=== PATIENT | male | born 1980 | race Caucasian/White ===

== ENCOUNTER 2018-01-19 10:29 | Outpatient (CLI) | payer BC, SELFPAY ==
[2018-01-19 13:19] LABS: Cholesterol 202 mg/dL (50-200); Glucose 101 mg/dL (70-100); HDL Cholesterol 35 mg/dL (40-60); LDL CHOLESTEROL 148 mg/dL (<100); Triglyceride 143 mg/dL (30-150)
== END 2018-01-19 10:49 ==
PROVIDERS: PCP Family Medicine; Visit Provider Family Medicine
DX: Z00.00 Encounter for general adult medical examination without abnormal findings (principal)
CPT/HCPCS: 36415; 80061; 82947; 83721

== ENCOUNTER 2018-02-28 10:25 | Outpatient (CLI) | payer BC, SELFPAY ==
--- NOTE | 2018-02-28 10:23 | DI.RAD_ITS ---
SYMPTOM/DIAGNOSIS: LT MEDIAL ELBOW PAIN, CUBITAL TUNNEL LEFT ELBOW: Three views. No bone or joint abnormality is identified. The soft tissues are unremarkable. IMPRESSION: Negative examination.
== END 2018-02-28 10:45 ==
PROVIDERS: PCP Family Medicine; Visit Provider Student in an Organized Health Care Education/Training Program
DX: M25.522 Pain in left elbow (principal); G56.22 Lesion of ulnar nerve, left upper limb
CPT/HCPCS: 73080

== ENCOUNTER 2018-04-06 12:28 | Emergency (ER) | payer BC, SELFPAY ==
[2018-04-06 12:34] VITALS: BP 132/88; PULSE 80; RESP 16; TEMP 36.8; O2SAT 95
--- NOTE | 2018-04-06 13:02 | DI.US_ITS ---
SYMPTOMS/DIAGNOSIS: EPIGASTRIC PAIN, WORSE AFTER FATTY FOOD, ? GALLBLADDER ABDOMINAL ULTRASOUND: Routine examination was performed. The study is limited due to overlying bowel. The proximal aorta is obscured by overlying bowel. The mid and distal aorta are of normal caliber. Inferior vena cava is unremarkable. The liver is normal in size. No solid hepatic mass is seen. Note is made of a 1.9 x 1.4 x 1.6 cm anechoic well-circumscribed avascular lesion in the right lobe, most consistent with a cyst. The gallbladder is negative. No stones, sludge or gallbladder wall thickening is seen. There is a negative sonographic Hartman's sign. The common duct is within normal limits at 0.5 cm. The tail of the pancreas was not well seen due to overlying bowel. The limited visualized portions of the pancreas appear grossly unremarkable. The spleen is unremarkable. The kidneys are unremarkable except for a tiny echogenic focus in the mid pole of the right kidney, which may represent a nonobstructing stone. IMPRESSION: 1. No evidence of an acute abdomen. 2. No evidence of cholelithiasis or biliary ductal dilatation.
--- NOTE | 2018-04-06 13:19 | ED.GENADUL_ITS ---
Discharge Plan Disposition Patient Disposition: HOME Condition: Fair Discharge Details Chief Complaint: Abd Prob Clinical Impression: Abdominal pain, epigastric Reason For Visit: stomach pain / vomiting Primary Care Provider: Lc Wheatley ED Provider: Amber Garcia Home Meds and New Rx's Prescriptions: No Action No Known Home Meds RF: 0 Discharge Instructions Instructions: Epigastric Pain (ED) Additional Instructions: Encourage hydration. If symptoms return, you may try simethicone to help with gas discomfort. If you develop inability to stay hydrated, fever/chills increased pain, change in bowel or bladder habits or other new/worsening symptoms please seek care urgently once again. Please follow-up with primary care in 1 week for reevaluation. Stand Alone Forms: Work Release Referrals: Lc Wheatley. [Primary Care Provider] - Discharge Data Discharge Date/Time-TO BE ENTERED AT DEPARTURE: 04/06/18 14:49 Medical Decision Making Patient is a 37-year-old male, company by his , with chief complaint of sudden onset of epigastric discomfort. Reports that he has had 3 total episodes like this historically. Reports he had one last summer after eating [employer], subsequent 1 4 days ago again after eating [employer] and then one that began today. He reports that pain last 3-4 hours, is aching can be fairly severe. He reports that the episode that occurred today was maximal discomfort out of these 3 episodes. States that when he does experience his pain, the pain becomes so severe that it does induce emesis. Reports he vomited x2 today. Denies any nausea. States that last night he had tuna casserole and a bagel with cream cheese this morning. Symptoms began a few hours after eating was able. States the pain can radiate through to the back. States that he feels like he has enlargement of bloating when this comes on. Reports the pain at this time is largely resolved. Has not had anything as discomfort. Denies any chest pain, shortness of breath. Is never had this discomfort come on when he is exerting himself. Patient is a physically active gentleman and has never experienced chest pain historically peer Exam is benign, no CVA tenderness, no pain with palpation at this time. He reports discomfort is largely resolved Plan to obtain laboratory evaluation, give GI cocktail and US of abdomen. His pain has been exacerbated by fatty foods historically making me question GB disease, will obtain US. Discussed plan with patient who is in agreement. US reviewed by tech and radiologist significant for cyst in liver but not acute findings, no GB disease noted. Evaluation significant for AST elevation to 56. However, this does not seem to be diagnostic or pointing towards any specific etiology at this time. I discussed the findings with the patient and his . At this point, I do not find any acute findings to suggest surgical pathology. His pain is largely resolved. He did not have any change in symptoms associated with GI cocktail. Discussed treatment options with the patient. Advise close follow-up with his primary care. We discussed that if this discomfort continues he may need an upper endoscopy. At this point, the patient seems to be epigastric and is largely resolved, I do not feel that CT is appropriate imaging modality. We discussed new/worsening symptoms and when to seek care urgently once again. All questions and concerns were addressed and he is in agreement this plan HPI General Mode of arrival: ambulatory . Date/Time Provider Initiated Documentation: 04/06/18 12:49 . Limitations to Documentation: no limitations . Information obtained by: patient and family . History of Present Illness 37 year old M presents to the emergency department with the chief complaint of epigastric pain, described as moderate, with intensity rated at 5. Quality is described as aching, and is localized to the abdomen. Patient reports radiation to back. Patient started experiencing this hour(s) (2) and it has been now resolved. No relieving factors improve symptom(s), Eating worsens symptoms . Patient notes no other symptoms. and nausea/vomiting; denies chest pain, cough, diaphoresis, fever/chills, headaches, loss of appetite, malaise, rash and shortness of breath. Patient did receive the following treatments prior to arrival, none Related Data Home Medications Medication Instructions Recorded Confirmed Unknown [No Known Home Meds] 02/28/18 Allergies Allergy/AdvReac Type Severity Reaction Status Date / Time eviromental allergies Allergy Intermediate Uncoded 04/06/18 12:38 General Stated Complaint: Abd Prob ROXIE: 3 Review of Systems Constitutional Reports as per HPI, Denies chills, Denies fatigue, Denies fever(s) and Denies headache(s) ENT Denies headache(s) Cardiovascular Reports as per HPI, Denies chest pain and Denies dyspnea Respiratory Denies dyspnea Gastrointestinal Reports as per HPI, Reports abdominal pain, Denies belching, Denies change in stool character, Denies nausea and Reports vomiting (x2) Genitourinary Denies system reviewed and no additional complaints, except as docu (patient denies any change in urinary habits) Musculoskeletal Reports as per HPI and Reports back pain Integumentary/Breasts Reports as per HPI and Denies rash Neurologic Denies headache(s) Endocrine Denies fatigue PFSH Family History Mother No problems noted. Father Personal history of malignant neoplasm Sister No problems noted. Brother No problems noted. Grandfather Diabetes Grandfather Personal history of malignant neoplasm Grandmother Diabetes Grandmother Diabetes Personal history of malignant neoplasm Son No problems noted. Son No problems noted. Vasectomy (~2005) Family History Mother No problems noted. Father Personal history of malignant neoplasm Sister No problems noted. Brother No problems noted. Grandfather Diabetes Grandfather Personal history of malignant neoplasm Grandmother Diabetes Grandmother Diabetes Personal history of malignant neoplasm Son No problems noted. Son No problems noted. Social History household members: other details: 4 current occupation: SELF EMPLOYED Smoking/Tobacco Use Status: Never alcohol intake: current alcohol intake frequency: a few times a month Surgical History Vasectomy (~2005) Social History household members: other details: 4 current occupation: SELF EMPLOYED Smoking/Tobacco Use Status: Never alcohol intake: current alcohol intake frequency: a few times a month Exam Const General: cooperative, healthy appearing, comfortable, no acute distress and well developed Nutritional Appearance: well nourished and overweight Orientation: alert and awake HENMT Head: normal to inspection Mouth: moist mucous membranes Resp Effort & Inspection: normal respiratory effort, able to speak in complete sentences and no respiratory distress Auscultation: clear to auscultation bilaterally, no rales, no rhonchi and no wheezes Cardio Rate: regular rate Rhythm: regular rhythm Heart Sounds: S1 normal and S2 normal GI Inspection: normal to inspection, no abdominal wall ecchymosis, no edema, non- distended and obesity Palpation: soft, no hepatosplenomegaly, no aortic enlargement, not firm, no guarding, no masses, not rigid and nontender Percussion: normal to percussion Auscultation: normal bowel sounds Back/Spine/Pelvis Back: no CVA tenderness Thoracic/Lumbar Spine: thoracic and lumbar spine normal to inspection Skin General skin exam: no rashes or lesions noted Trauma: no lacerations or abrasions Neuro General: alert and awake Cognition: normal cognition Speech: speech normal Gait: normal gait Psych Appearance: grossly normal and well kempt Mental Status: mental status grossly normal Speech and Movement: speech and movement normal Course Vital Signs Temperature 36.8 C 04/06/18 12:34 Pulse 80 04/06/18 12:34 Respiratory Rate 16 04/06/18 12:34 Blood Pressure 132/88 04/06/18 12:34 Pulse Oximetry 132 H 04/06/18 12:34 Temperature 36.8 C 04/06/18 12:34 Temperature Source Tympanic 04/06/18 12:34 Pulse 80 04/06/18 12:34 Respiratory Rate 16 04/06/18 12:34 Respiratory Effort 04/06/18 12:38 Blood Pressure 132/88 04/06/18 12:34 Pulse Oximetry 132 H 04/06/18 12:34 Oxygen Delivery Method Room Air 04/06/18 12:34 Oxygen Flow Rate 0 04/06/18 12:34 Pain Level 5 04/06/18 12:34
[2018-04-06 13:23] LABS: Abs Immature Grans 0.07 k/cumm (0.0-0.09); Absolute Basophil Count 0.03 k/cumm (0.0-0.2); Absolute Eosinophil Count 0.17 k/cumm (0.0-0.7); Absolute Lymphocyte Count 1.91 k/cumm (1.2-3.4); Absolute Monocyte Count 0.54 k/cumm (0.11-0.7); Absolute Neutrophil Count 6.72 k/cumm (1.2-6.7); Basophils % 0.3; Eosinophils % 1.8; HCT 44.3 % (40.0-50.0); HGB 15.2 g/dL (13.5-17.5); Immature Grans % 0.7; Lymphocytes % 20.2; Mean Corp. HGB Concentration 34.3 g/dL (32.0-36.0); Mean Corpuscular Hemoglobin 29.1 pg (27.0-33.0); Mean Corpuscular Volume 84.9 fL (80-95); Mean Platelet Volume 10.6 fL (8.0-11.0); Monocytes % 5.7; Neutrophils % 71.3; Platelet Count 246 x1000/uL (130-400); RBC 5.22 m/cumm (4.50-6.00); RBC Distribution Width 12.3 % (11.8-14.1); White Blood Cell Count 9.44 k/cumm (4.4-10.8)
[2018-04-06 13:34] LABS: ALT 77 U/L (12-78); AST 56 U/L (15-37); Albumin 4.2 g/dL (3.4-5.0); Alkaline Phosphatase 59 U/L (46-116); Anion Gap 8.3 mmol/L (3-11); BUN 10 mg/dL (7-18); Bilirubin, Total 0.5 mg/dL (0.2-1.0); CO2 31.7 mmol/L (21.0-32.0); CREATININE 1.03 mg/dL (0.70-1.30); Calcium 9.1 mg/dL (8.5-10.1); Chloride 102 mmol/L (98-107); Glucose 113 mg/dL (70-100); Lipase 102 U/L (73-393); Potassium 4.4 mmol/L (3.5-5.1); Sodium 142 mmol/L (136-145); Total Protein 7.8 g/dL (6.4-8.2)
[2018-04-06 13:40] VITALS: TEMP 37.1
[2018-04-06 14:45] VITALS: BP 147/95; PULSE 86; RESP 17; TEMP 36.3; O2SAT 95
== END 2018-04-06 14:49 | disposition home or self-care (01) ==
PROVIDERS: Emergency Provider Physician Assistant; PCP Family Medicine
DX: R10.13 Epigastric pain (principal); R11.10 Vomiting, unspecified
CPT/HCPCS: 36415; 80053; 83690; 99284; 76700; 85025

== ENCOUNTER 2018-04-21 11:25 | Day surgery (SDC) | payer BC, SELFPAY ==
[2018-04-21] VITALS (8 sets, daily range): BP systolic 116–136; BP diastolic 65–87; PULSE 68–79; RESP 15–16; TEMP 36.7–37; O2SAT 93–96
[2018-04-21] MEDS: Lactated Ringers 1,000 ML 80 ML IV (12:05)
--- NOTE | 2018-04-21 13:53 | W.PM.DSUDISC ---
Discharge Plan Disposition Patient Disposition: HOME Condition: Good Discharge Details Reason For Visit: (L) CUBITAL TUNNEL SYNDROME Attending Provider: Marquis Pena Primary Care Provider: Lc Wheatley Home Meds and New Rx's Prescriptions: New hydrocodone-acetaminophen 5-325 mg tablet 1 tab PO Q4H PRN (Reason: pain) Qty: 8 RF: 0 ibuprofen 600 mg tablet 600 mg PO TID PRN (Reason: pain) Qty: 60 RF: 3 acetaminophen 500 mg capsule 1,000 mg PO Q8H PRN (Reason: pain) Qty: 60 RF: 0 Continued ranitidine HCl [Acid Automobile Mechanic Radiator (ranitidine)] 75 mg tablet 75 mg PO DAILY RF: 0 albuterol sulfate 90 mcg/actuation Hfa Aerosol Inhaler 1 puff INHALATION Q6H PRNRF: 0 Discharge Instructions Additional Instructions: Activity: You should stay in the sling for the first 2 weeks. You may come out of the sling for gentle motion and hygiene but should largely remain in the sling to allow the incision site to heal. Gentle motion of the elbow, hand, wrist, and fingers is okay and encouraged after the first few days, but no repetitive activites nor heavy lifting. You may apply ice. Medications: - You should take Tylenol and Ibuprofen around the clock. - You have been prescribed Hydrocodone for breakthrough pain. Dressings: - The initial surgical dressing should stay in place for 3 days. It may then be removed and kept clean and dry. You should cover with a light gauze dressing. - You may shower after 3 days and get the wound wet. Follow-up: 10 days Referrals: Marquis Pena MD [ [facility] STAFF PHYSICIAN] - Equipment/Supplies: Sling Activity:: Elevate Remove Dressings/Wound Care:: 72 hours Shower/Bathe:: 72 hours Diet:: As Tolerated Discharge Orders Discharge Orders: Discharge Order (Routine); Ordered 04/21/18 Ordered By: Marquis Pean DS: Diagnosis Discharge Diagnosis (1) Ulnar nerve entrapment at elbow: Status: Acute (2) Medial epicondylitis, left elbow: Status: Acute
--- NOTE | 2018-04-22 09:27 | ROE_ITS ---
REPORT OF OPERATIVE PROCEDURE DATE OF SURGERY April 21, 2018 PREOPERATIVE DIAGNOSES Left ulnar nerve entrapment, left medial epicondylitis. POSTOPERATIVE DIAGNOSES Left ulnar nerve entrapment with nerve dislocation, left medial epicondylitis. SURGERY Left ulnar nerve decompression with anterior subcutaneous transposition and medial epicondyle debride ment. SURGEON Marquis Pena M.D. DEPARTMENT CLERK Gabi Barajas PA-C. ANESTHESIA General. FINDINGS The ulnar nerve was notably taught. It was constricted at the level just distal to the medial epicond yle as it entered the flexor carpi ulnaris. The nerve was able to be dislocated even prior to releasi ng the nerve. It was transposed anteriorly. A fascial sling was used to support it. I also debrided d own some degenerative tissue seen at the origin of the pronator teres and flexor carpi radialis. ESTIMATED BLOOD LOSS 5 cc. COMPLICATIONS None. DISPOSITION The patient was awakened from anesthesia and taken to the PACU in stable condition. INDICATION FOR PROCEDURE Eduardo is a 37-year-old who has had persistent numbness and tingling into the hand. He had previous c arpal tunnel release. He continued to have issues with the ulnar side of the hand. In addition, he davison d symptoms of medial epicondylitis. He had been dealing with this for quite some time. He had failed conservative treatment options. He desired to have some more permanent relief of his symptoms. Theref geremias, I recommended surgical intervention. I reviewed the technical details of the surgery. I reviewed the risks to include bleeding, infection, pain, stiffness, persistent numbness, damage to the nerve, recurrence of entrapment, persistence of medial epicondylitis symptoms, cutaneous anesthesia. Despit e these risks, he elected to proceed. PROCEDURE DESCRIPTION Eduardo was greeted in the preoperative holding area. His identity was confirmed and the correct site was identified and marked. The consent was reviewed with the patient and signed. The history and phys ical was updated. He was taken back to the Operating Room and placed in the supine position. All bony prominences were padded. A nonsterile tourniquet was placed high up on the left arm into the axilla making sure to leave plenty of space for the surgical field. Prophylactic antibiotics in the form of cefazolin were administered. A general anesthetic was given. A time-out was performed for safe surger y. The left arm was then prepped with ChloraPrep and draped in a standard fashion. The proposed surgical site was anesthetized with 0.5% bupivacaine with epinephrine. The limb was exsanguinated and the db rniquet was inflated to 275 mmHg, where it stayed for 30 minutes. An 8-cm incision was then made alexus g the medial aspect of the elbow just off the medial epicondyle. This was taken down sharply through the skin. Blunt dissection was used to dissect through the skin. There were two prominent branches of the medial and medial and antebrachial cutaneous nerve, which were identified and tagged. These were made sure to not injure during the case. The ulnar nerve was easily identifiable and palpable. With elbow range of motion, prior to any decompression, the nerve was noted to sublux over the medial epic ondyle. The proximal dissection was quite easy and the ulnar nerve was relatively free of any signifi cant attachments, nor any sites of compression. However, from the level of the medial epicondyle movi ng distally, there was compression on the ulnar nerve especially as it entered into the flexor carpi ulnaris. The ulnar nerve was dissected fully. A vessel loop was placed around the ulnar nerve. Attent ion was really paid to the distal aspect. It was freed from its attachments to allow anterior transpo sition. This was taken all the way down to the first motor branch of the ulnar nerve. The sheath over lying the ulnar nerve, belonging to the flexor carpi ulnaris, was significantly tightened. This was r eleased past this branch to allow freedom of the nerve. A portion of the medial intermuscular septum was also removed from the distal aspect of the arm to allow no point of compression to the nerve and its new anterior position. Once this was performed the nerve stayed anteriorly without any fascial sl ing. It did not move posteriorly. It actually was hard to keep behind the medial epicondyle. It seem ed to be much tighter than usual. With the nerve protected, I then addressed the medial epicondylitis . Dissection was used to expose the flexor pronator mass. The division of between the flexor pronator m ass identifying the pronator teres and flexor carpi radialis interval was identified. This was opened longitudinally. Within this interval, there was noted to be some mckeon and fibroangioblastic tissue, degenerative tissue. This was scraped away with a knife blade. A knife was also used to sharply excis e some of this tissue. The interval between the two muscles were reapproximated with a #2-0 Vicryl. T his was then thoroughly irrigated. A small fascial sling was then also made from the flexor pronator origin. The nerve was positioned anteriorly. Range of motion of the arm was performed and both proxim al and distal aspects of the nerve were palpated to make sure there were no signs of compression. Wit h the nerve now resting anteriorly, the fascial sling was sutured to the subcutaneous tissue to creat e a sling to help prevent the nerve from any posterior subluxation. With the sling in position, the n erve was resting in the anterior position. A freer was used to make sure there was no points of compr ession along its path. The wound was then again irrigated. The tourniquet was deflated. There was no significant bleeding. The deep tissues were closed with a #3-0 Vicryl. The skin was closed with a #4- 0 Nylon. The wound was dressed with Xeroform, 4x4s, ABD, Kerlix and Alex wrap. He was placed in a sli ng. At the end of the case, all counts were correct.
== END 2018-04-21 15:39 | disposition home or self-care (01) ==
PROVIDERS: PCP Family Medicine; Visit Provider Student in an Organized Health Care Education/Training Program
PROC: (CPT 64718; principal; 2018-04-21 12:00)
PROC: (CPT 64718; 2018-04-21 12:00)
DX: G56.22 Lesion of ulnar nerve, left upper limb (principal); M77.02 Medial epicondylitis, left elbow
CPT/HCPCS: 64718; 11043; J0690; J1100; J1885; J2250; J2405; J3010; L3650